=== PATIENT | male | born 1990 | race Caucasian/White ===

== ENCOUNTER 2018-03-22 02:47 | Emergency (ER) | payer MEDICAID ==
[2018-03-22] MEDS: ACETAMINOPHEN 325 MG TAB PO (03:44)
[2018-03-22] MEDS: LIDOCAINE 1% (MPF) 5 ML VIAL INJ (03:45)
[2018-03-22] MEDS: DIPHTH/TET/ACEL PERTUSS (ADULT) 0.5 ML VIAL IM* (03:45)
== END 2018-03-22 05:14 | disposition home or self-care (01) ==
LOC: FTE 02:47
DX: S81.812A Laceration without foreign body, left lower leg, initial encounter (principal); W26.8XXA Contact with other sharp object(s), not elsewhere classified, initial encounter; Y92.9 Unspecified place or not applicable; Z23 Encounter for immunization; Z87.891 Personal history of nicotine dependence
CPT/HCPCS: 12001; 90471; 90715; 99283-25

== ENCOUNTER 2018-03-31 23:34 | Emergency (ER) | payer MEDICAID | END 2018-04-01 01:27 | disposition home or self-care (01) | LOC: FTE 23:34 | DX: M79.672 Pain in left foot (principal) | CPT/HCPCS: 73630; 73630-LT; 99283-25 ==